=== PATIENT | male | born 1960 | race Caucasian/White ===

== ENCOUNTER 2018-09-12 12:05 | Outpatient (RCR) | payer BC | END 2018-11-22 | disposition home or self-care (01) | LOC: COL.CR | DX: Z48.812 Encounter for surgical aftercare following surgery on the circulatory system (principal); Z95.1 Presence of aortocoronary bypass graft ==

== ENCOUNTER 2021-02-07 07:31 | Day surgery (SDC) | payer BC, OTHER ==
[~2021-02-07] VITALS: Ht 167.6 cm; Wt 83.6 kg
[2021-02-07 08:16] VITALS: BP 117/76; PULSE 59; TEMP 97.5
[2021-02-07] MEDS ORDERED: ALTACE 5MG5 MG PO (08:20)
[2021-02-07] MEDS ORDERED: FLOMAX 0.40.4 MG/CAP PO (08:21)
[2021-02-07] MEDS ORDERED: ASPIRIN 32325 MG/TAB PO (08:21)
[2021-02-07] MEDS ORDERED: NITROSTAT0.4 MG/TAB SL (08:22)
[2021-02-07] MEDS ORDERED: HCTZ 25MG TAB25 MG PO (08:22)
[2021-02-07] MEDS ORDERED: LIPITOR 40MG TA40 MG PO (08:23)
[2021-02-07] MEDS ORDERED: ZEBETA 5MG5 MG PO (08:23)
--- NOTE | 2021-02-07 08:57 | NUR ---
The patient had a copy of his vaccine card on his phone that he sent to the nurse via email. The nurse attempted to print the picture sent but it is hard to read the dates. The patient had the Moderna vaccine on 12/12/20 and 01/09/21 at [facility] in [place], [place].
[2021-02-07 09:25] VITALS: BP 135/90; PULSE 59
--- NOTE | 2021-02-07 09:25 | NUR ---
Patient arrives back to [facility]. Patient ambulated from cart to chair with standby assist and without any complications. Patient's spouse at bedside.
[2021-02-07 09:45] VITALS: BP 124/73; PULSE 59
--- NOTE | 2021-02-07 09:45 | NUR ---
Patient tolerating food and drink without any nausea. Vitals stable.
--- NOTE | 2021-02-07 10:00 | NUR ---
Dr Alvarez into see patient to go over results at this time.
--- NOTE | 2021-02-07 10:10 | NUR ---
Dismissal instructions gone over with patient and patient's spouse. Both verbalize understanding and all questions answered.
--- NOTE | 2021-02-07 10:15 | NUR ---
Patient discharged to private vehicle at patient enterance via wheelchair without any complications. Patient and spouse leave thanking staff for services.
== END 2021-02-07 10:15 | disposition home or self-care (01) ==
LOC: SDCO 07:31
DX: Z12.11 Encounter for screening for malignant neoplasm of colon (principal); D12.2 Benign neoplasm of ascending colon; K57.30 Diverticulosis of large intestine without perforation or abscess without bleeding; I10 Essential (primary) hypertension; I25.10 Atherosclerotic heart disease of native coronary artery without angina pectoris; E78.5 Hyperlipidemia, unspecified; Z95.1 Presence of aortocoronary bypass graft; Z86.73 Personal history of transient ischemic attack (TIA), and cerebral infarction without residual deficits; Z79.899 Other long term (current) drug therapy; Z87.891 Personal history of nicotine dependence
CPT/HCPCS: J2704; J7120